=== PATIENT | male | born 1965 | race Caucasian/White ===

== ENCOUNTER 2017-07-08 16:38 | Emergency (ER) | payer OTHER ==
[2017-07-08 17:04] VITALS: BP 149/87
--- NOTE | 2017-07-08 18:04 | UC ---
Elbow Pain - HPI Summary HPI Summary: injury on 06/30/17 hit elbow on a hoist, still having tenderness when touching it. - History of Current Complaint Chief Complaint: UCUpperExtremity Stated Complaint: RT ELBOW PAIN Time Seen by Provider: 07/08/17 17:53 Hx Obtained From: Patient Onset/Duration: Days Severity Initially: Severe Severity Currently: Moderate Location Of Pain: Is Discrete @ - olecranon Character: Sharp Aggravating Factor(s): Other - touching Alleviating Factor(s): Nothing Associated Signs And Symptoms: Positive: Negative - Allergies/Home Medications Home Medications: Home Medications Gabapentin CAP(*) [Neurontin 300 CAP(*)] 300 mg PO BEDTIME 07/08/17 [History Confirmed 07/08/17] Hydrochlorothiazide TAB* [Hydrodiuril TAB*] 25 mg PO DAILY 07/08/17 [History Confirmed 07/08/17] Lidocaine 5% OINT* [Xylocaine 5% Oint*] 1 applic .SEE ORDER BID PRN 07/08/17 [ History Confirmed 07/08/17] Multiple Vitamins W/ Minerals [Multivitamin Adults] 1 tab PO DAILY 07/08/17 [ History Confirmed 07/08/17] Naproxen TAB* [Naprosyn 250 mg TAB*] 250 mg PO BID 07/08/17 [History Confirmed 07/08/17] PARoxetine HCL TAB* [Paxil TAB*] 40 mg PO DAILY 07/08/17 [History Confirmed ] Pravastatin Sodium [Pravachol] 20 mg PO DAILY 07/08/17 [History Confirmed ] PMH/Surg Hx/FS Hx/Imm Hx Previously Healthy: Yes - Surgical History Surgical History: None - Family History Known Family History: Positive: Hypertension - Social History Alcohol Use: Rare Substance Use Type: None Smoking Status (MU): Never Smoked Tobacco Review of Systems Constitutional: Negative Skin: Negative Eyes: Negative ENT: Negative Respiratory: Negative Cardiovascular: Negative Gastrointestinal: Negative Genitourinary: Negative Motor: Negative Neurovascular: Negative Musculoskeletal: Arthralgia Neurological: Negative Psychological: Negative Is Patient Immunocompromised?: No All Other Systems Reviewed And Are Negative: Yes Physical Exam Triage Information Reviewed: Yes Appearance: Well-Appearing, Pain Distress, Obese Vital Signs: Initial Vital Signs Temp 97.7 F 07/08/17 16:54 Pulse 94 07/08/17 16:54 Resp 12 07/08/17 16:54 BP 149/87 07/08/17 16:54 Pulse Ox 97 07/08/17 16:54 Vital Signs Reviewed: Yes Eye Exam: Normal ENT Exam: Normal Dental Exam: Normal Neck exam: Normal Respiratory Exam: Normal Cardiovascular Exam: Normal Abdominal Exam: Normal Bowel Sounds: Positive: Present Musculoskeletal: Positive: Strength Intact, ROM Intact, No Edema, Other: - point tender at end of right olecranon Neurological Exam: Normal Psychological Exam: Normal Skin Exam: Normal Elbow Pain Course/Dx - Course Course Of Treatment: hx obtained,exam performed ,meds reviewed, xray obtained, neg for fracture, OA noted - Differential Dx/Diagnosis Differential Diagnosis/HQI/PQRI: Bursitis, Contusion, Fracture (Closed) Provider Diagnoses: elbow pain Discharge - Discharge Plan Condition: Stable Disposition: HOME Patient Education Materials: Elbow Bursitis (ED) Additional Instructions: 1. start the medication as prescribed for the next 2 weeks 2. if not improving in the next few weeks follow up with orthopedics as listed
--- NOTE | 2017-07-08 18:37 | RAD ---
INDICATION: Right elbow injury COMPARISON: None TECHNIQUE: AP, lateral, and oblique views were obtained. FINDINGS: There is no acute fracture. There is degenerative change consisting of traction spurring from the olecranon and mild spurring coronoid process. The elbow articulates normally. There is no joint effusion. IMPRESSION: MINOR OSTEOARTHRITIS. NO ACUTE BONY FINDINGS.
== END 2017-07-08 18:47 | disposition home or self-care (01) ==
LOC: UCCORT 16:38
DX: M25.521 Pain in right elbow (principal); W22.8XXA Striking against or struck by other objects, initial encounter
CPT/HCPCS: 99212; G0463

== ENCOUNTER 2021-06-02 05:33 | Observation (INO) ==
[2021-06-02] MEDS ORDERED: Lactated Ringers 1000 ml BAG 1,000 ML IV SCH (06:00)
[2021-06-02] MEDS ORDERED: Buffered Lidocaine 1% SYRIN 1 ml INTRADERM ONE (06:00)
[2021-06-02] MEDS ORDERED: Heparin 5000 UNITS/ML 1 mL VIAL ONE (06:43)
[2021-06-02] MEDS ORDERED: ceFAZolin 1 GM ADVAN 1 GM ADDV.VIAL IVPB ONE (06:43)
[2021-06-02] MEDS ORDERED: ceFAZolin 2 GM in NS PREMIX 2 GM/100 ML BAG IVPB ONE (06:43)
[2021-06-02] MEDS ORDERED: Propofol 10 MG/ML 20 ML BTL ONE (06:50)
[2021-06-02] MEDS ORDERED: Lidocaine 2% PF 5 ML VIAL ONE ×2 (06:51)
[2021-06-02] MEDS ORDERED: Rocuronium 50 mg VIAL 10 mg/ml 5 ml VIAL (50 mg) ONE ×3 (06:55→08:47)
[2021-06-02] MEDS ORDERED: fentaNYL 250 mcg/5 ml 50 MCG/ML 5 ml VIAL (250 MCG) ONE (06:56)
[2021-06-02] MEDS ORDERED: Ketamine HCL 50 mg/ml 10 ml VIAL (500 MG) ONE (06:56)
[2021-06-02] MEDS ORDERED: Sevoflurane BOTTLE ONE (06:57)
[2021-06-02] MEDS ORDERED: Lidocaine 1% w EPI 1:200,000 SDV 30 ML VIAL ONE (07:06)
[2021-06-02] MEDS ORDERED: Bupivacaine 0.5% 50 ML MDV VIAL ONE (07:06)
[2021-06-02] MEDS ORDERED: EPHEDrine (Pressors) 50 MG/ML VIAL ONE (08:20)
[2021-06-02] MEDS ORDERED: Midazolam 2 mg/2 ml VIAL 1 mg/ml 2 ml VIAL (2 mg) ONE (08:21)
[2021-06-02] MEDS ORDERED: Sugammadex 500 MG/5 ML 5 ml VIAL IV PUSH ONE (08:58)
[2021-06-02] MEDS ORDERED: Ondansetron 4 mg VIAL 2 MG/ML 2 ml VIAL ONE ×2 (08:58→10:36)
[2021-06-02] MEDS ORDERED: Dexamethasone IV 4 MG/ML VIAL 1 ml VIAL ONE (08:58)
[2021-06-02] MEDS ORDERED: Acetaminophen IV 1 GM/100ML 100 ML IV ONE (09:02)
[2021-06-02] MEDS ORDERED: Acetaminophen IV 1 GM/100ML 100 ML IV PRN (09:19)
[2021-06-02] MEDS ORDERED: DiMENhydriNATE IV 50 mg/ml 1 ml VIAL IV PUSH PRN (09:19)
[2021-06-02] MEDS ORDERED: Ondansetron 4 mg VIAL 2 MG/ML 2 ml VIAL IV PRN ×2 (09:19→10:01)
[2021-06-02] MEDS ORDERED: Naloxone 0.4 mg VIAL 0.4 mg/ml 1 ml VIAL IV PRN (09:19)
[2021-06-02] MEDS ORDERED: HYDROmorphone 0.5 MG/0.5 ML SYRINGE IV SLOW PU PRN (10:01)
[2021-06-02] MEDS ORDERED: diPHENhydraMINE IV 50 MG/ML 1 ml VIAL (BENADRYL) SLOW PUSH PRN (10:01)
[2021-06-02] MEDS ORDERED: HYDROcodone/ACET. 7.5/325 LIQ 15 ML UDC PO PRN (10:01)
[2021-06-02] MEDS ORDERED: fentaNYL 100 mcg/2 ml 50 MCG/ML VIAL ONE (10:33)
[2021-06-02] MEDS: fentaNYL 100 mcg/2 ml 50 MCG/ML VIAL IV PRN ×3 (10:34→10:48)
[2021-06-02] MEDS ORDERED: HYDROmorphone 1 MG/1 ML SYRINGE ONE (10:36)
[2021-06-02] MEDS: HYDROmorphone 1 MG/1 ML SYRINGE IV PRN ×2 (10:37→10:46)
[2021-06-02] MEDS ORDERED: DiMENhydriNATE IV 50 mg/ml 1 ml VIAL ONE (10:41)
[2021-06-02] MEDS: Lactated Ringers 1000 ml BAG 1,000 ML IV SCH ×2 (11:29→18:47)
[2021-06-02] MEDS: Heparin 5000 UNITS/ML 1 mL VIAL SUBCUT SCH (21:05)
[2021-06-03] MEDS: Lactated Ringers 1000 ml BAG 1,000 ML IV SCH ×2 (01:58→08:10)
[2021-06-03] MEDS: Heparin 5000 UNITS/ML 1 mL VIAL SUBCUT SCH ×2 (05:10→12:51)
[2021-06-03] MEDS ORDERED: CMC: Omeprazole 20 mg CAP (NF) PO SCH (09:00)
[2021-06-03] MEDS ORDERED: D5W 1/2 NS KCl 20 meq 1000 ml 1,000 ML IV SCH (11:00)
[2021-06-03 11:36] VITALS: BP 136/74
== END 2021-06-03 15:20 | disposition home or self-care (01) ==
LOC: AA 05:33 → INTOOBSV 05:33 → SSU 11:26
PROVIDERS: ADMIT Surgery; ATTEND Surgery